=== PATIENT | female | born 2000 | race Caucasian/White ===

== ENCOUNTER 2021-10-31 13:39 | Inpatient (IN) | payer OTHER ==
[~2021-10-31] VITALS: Ht 157.5 cm; Wt 61.2 kg
[2021-10-31] MEDS ORDERED: PREN-183 PO (13:49)
[2021-10-31] MEDS ORDERED: ACET-2708 PO (13:50)
[2021-10-31] MEDS ORDERED: SODIUM CHLORIDE 0.9% 1,000 ML IV ONE (14:15)
[2021-10-31] MEDS ORDERED: IBUPROFEN 600MG TABLET PO STA (14:15)
[2021-10-31] MEDS ORDERED: ALBUTEROL 6.7GM HFA INHALER ORI ONE (14:45)
[2021-10-31 15:01] LABS: HEMATOCRIT. 35.6 % (36.0-48.0); HEMOGLOBIN. 11.8 g/dL (12.0-16.0); MEAN CORPUSCULAR HEMOGLOBIN 29.1 pg (28.0-32.0); MEAN CORPUSCULAR VOLUME 87.4 fL (81.0-99.0); MEAN PLATELET VOLUME 9.5 fl (7.4-10.4); PLATELET 222 x1000/uL (130-400); RED BLOOD CELL COUNT 4.07 mill/uL (4.2-5.4); RED CELL DISTRIBUTION WIDTH 13.7 % (11.6-14.6)
[2021-10-31 15:11] LABS: D-DIMER 1.23 mg/L FEU (<0.50)
[2021-10-31 15:19] LABS: CHLORIDE 105 mEq/L (98-107)
[2021-10-31 15:41] LABS: B-HCG QUANTITATIVE 14626 mIU/mL (<3)
[2021-10-31] MEDS: AZTREONAM 2 GM in DEXT 5% WATER 100 ML IV SCH (16:00)
[2021-10-31 16:49] LABS: CLARITY URINE CLEAR (CLEAR); COLOR URINE YELLOW (YELLOW); KETONES URINE TRACE (NEGATIVE); LEUKOCYTE ESTERASE URINE TRACE (NEGATIVE); NITRITE URINE NEGATIVE (NEGATIVE); OCCULT BLOOD URINE NEGATIVE (NEGATIVE); PROTEIN URINE NEGATIVE (NEGATIVE); SPECIFIC GRAVITY URINE 1.021 (1.005-1.030)
[2021-10-31 16:59] LABS: PLATELET ESTIMATE NORMAL
[2021-10-31] MEDS ORDERED: SODIUM CHLORIDE 0.45% 1,000 ML IV SCH (22:30)
[2021-10-31] MEDS ORDERED: NA PHOS,M-B/NA PHOS,DI-BA ENEMA 118ML PR PRN (22:30)
[2021-10-31] MEDS ORDERED: MAGNESIUM/ALUMINUM HYDROXIDE/SIMETHICONE 30ML UDC PO PRN (22:30)
[2021-10-31] MEDS ORDERED: ACETAMINOPHEN 325MG TABLET PO PRN (22:30)
[2021-10-31] MEDS ORDERED: IOHEXOL-350 100 ML BOTTLE ONE (23:13)
[2021-11-01] VITALS (7 sets, daily range): BP systolic 105–113; BP diastolic 53–80
[2021-11-01 00:46] LABS: CHLORIDE 106 mEq/L (98-107)
[2021-11-01] MEDS: AZTREONAM 2 GM in DEXT 5% WATER 100 ML IV SCH (04:00)
[2021-11-01 12:45] LABS: CHLORIDE 106 mEq/L (98-107)
[2021-11-01] MEDS ORDERED: AZTREONAM 2 GM in DEXT 5% WATER 100 ML IV SCH (18:00)
== END 2021-11-01 20:44 | disposition home or self-care (01) | DRG 566 ==
LOC: ER 13:39 → MICUSO 22:39 → EDBEDREQTM 22:44 → EDBEDREQ 22:44 → EDBEDREQSVC 22:44 → 7EST 11-01 02:56
PROVIDERS: ADMIT Internal Medicine; ATTEND Internal Medicine
DX: O98.512 Other viral diseases complicating pregnancy, second trimester (principal); U07.1 COVID-19; O44.42 Low lying placenta NOS or without hemorrhage, second trimester; E86.0 Dehydration; O99.612 Diseases of the digestive system complicating pregnancy, second trimester; O99.512 Diseases of the respiratory system complicating pregnancy, second trimester; K21.9 Gastro-esophageal reflux disease without esophagitis; J45.909 Unspecified asthma, uncomplicated; Z87.891 Personal history of nicotine dependence; Z3A.19 19 weeks gestation of pregnancy; Z88.1 Allergy status to other antibiotic agents; Z88.8 Allergy status to other drugs, medicaments and biological substances; Z90.49 Acquired absence of other specified parts of digestive tract
CPT/HCPCS: 36415; 71045; 71275; 76805; 80048; 80053; 81003; 83605; 83880; 84145; 84484; 84702; 85025; 85379; 86850; 86900; 87426; 93005; 94640; 99291; C9803; J3490; J7030; J7060; Q9967

== ENCOUNTER 2022-01-04 21:28 | Observation (INO) | payer OTHER ==
[~2022-01-04] VITALS: Ht 162.6 cm; Wt 94.3 kg
[~2022-01-04 21:28] MED LIST: ACET-2708 PO; PREN-183 PO
[2022-01-04] MEDS ORDERED: ONDANSETRON HCL 4MG/2ML INJ IV ONE (23:00)
[2022-01-04] MEDS ORDERED: ACETAMINOPHEN 325MG TABLET PO PRN (23:00)
[2022-01-04] MEDS ORDERED: LACTATED RINGERS 1,000 ML IV NR (23:00)
[2022-01-04] MEDS ORDERED: LACTATED RINGERS 1,000 ML IV SCH (23:00)
[2022-01-04] MEDS ORDERED: LABETALOL HCL 100MG TABLET PO ONE (23:30)
[2022-01-04 23:43] LABS: CLARITY URINE CLEAR (CLEAR); COLOR URINE YELLOW (YELLOW); KETONES URINE NEGATIVE (NEGATIVE); LEUKOCYTE ESTERASE URINE NEGATIVE (NEGATIVE); NITRITE URINE NEGATIVE (NEGATIVE); OCCULT BLOOD URINE NEGATIVE (NEGATIVE); PROTEIN URINE NEGATIVE (NEGATIVE); SPECIFIC GRAVITY URINE 1.018 (1.005-1.030); UROBILINOGEN URINE 0.2 E.U./dL (0.2-1.0)
[2022-01-05] MEDS ORDERED: LABETALOL HCL 100MG TABLET PO SCH (09:00)
== END 2022-01-05 00:35 | disposition home or self-care (01) ==
LOC: 8 EST LDRP 21:28
PROVIDERS: ADMIT Obstetrics & Gynecology; ATTEND Obstetrics & Gynecology
DX: O26.893 Other specified pregnancy related conditions, third trimester (principal); R10.2 Pelvic and perineal pain; R10.31 Right lower quadrant pain; Z3A.29 29 weeks gestation of pregnancy
CPT/HCPCS: 59025; 76805; 81003; 96360; G0378

== ENCOUNTER 2022-03-19 02:32 | Inpatient (IN) | payer OTHER ==
[~2022-03-19] VITALS: Ht 162.6 cm; Wt 94.8 kg
[2022-03-19] MEDS ORDERED: PNV1TABL61 PO (03:45)
[2022-03-19] MEDS ORDERED: RHO(D) IMMUNE GLOBULIN 300 MCG/SYR IM ONE (13:00)
[2022-03-19] MEDS ORDERED: OXYTOCIN 30 UNITS/500ML NS PMX 500 ML IV SCH (13:00)
[2022-03-19] MEDS ORDERED: LIDOCAINE HCL 1% 20ML VIAL (Pyxis) INJ INFIL SCH (13:00)
[2022-03-19] MEDS: LACTATED RINGERS 1,000 ML IV SCH ×3 (14:36→21:29)
[2022-03-19] MEDS ORDERED: ROPIVACAINE HCL/PF EPIDURAL 200 ML EPI SCH (15:15)
[2022-03-19 19:36] LABS: BASOPHILS % 0.3 % (0.0-2.0); HEMATOCRIT. 40.8 % (36.0-48.0); HEMOGLOBIN. 13.4 g/dL (12.0-16.0); MEAN CORPUSCULAR HEMOGLOBIN 27.7 pg (28.0-32.0); MEAN CORPUSCULAR VOLUME 84.4 fL (81.0-99.0); MEAN PLATELET VOLUME 10.5 fl (7.4-10.4); MONOCYTES % 6.3 % (2.0-8.0); NEUTROPHILS % 73.4 % (40.0-76.0); PLATELET 215 x1000/uL (130-400); RED BLOOD CELL COUNT 4.83 mill/uL (4.2-5.4); RED CELL DISTRIBUTION WIDTH 15.2 % (11.6-14.6)
[2022-03-19] MEDS ORDERED: PENICILLIN G POTASSIUM 5 MMU in DEXT 5% WATER 100 ML IV NR (19:45)
[2022-03-19 20:11] LABS: HEPATITIS B SURFACE ANTIGEN NEGATIVE
[2022-03-19 21:11] LABS: PARTIAL THROMBOPLASTIN TIME 28.5 sec (23.4-31.0); PROTHROMBIN TIME 10.8 sec (9.6-11.0)
[2022-03-20] MEDS ORDERED: LANOLIN OINT 7GM TUBE TOP PRN
[2022-03-20] MEDS ORDERED: IBUPROFEN 400MG TABLET PO PRN
[2022-03-20] MEDS ORDERED: ACETAMINOPHEN WITH CODEINE 300/30MG TABLET PO PRN
[2022-03-20] MEDS ORDERED: BENZOCAINE/LANOLIN/ALOE VERA SPRAY TOP PRN
[2022-03-20] MEDS ORDERED: DIPHENHYDRAMINE 25MG CAPSULE PO PRN
[2022-03-20] MEDS ORDERED: RHO(D) IMMUNE GLOBULIN 300 MCG/SYR IM PRN
[2022-03-20] MEDS ORDERED: PENICILLIN G POTASSIUM 2.5 MMU in DEXTROSE 5% WATER 50 ML IV SCH ×2
[2022-03-20] MEDS ORDERED: OXYTOCIN 30 UNITS/500ML NS PMX 500 ML IV SCH
[2022-03-20] MEDS ORDERED: BISACODYL 10MG SUPP PR PRN
[2022-03-20] MEDS ORDERED: HEMORRHOIDAL SUPP PR PRN
[2022-03-20] MEDS ORDERED: GLYCERIN/WITCH HAZEL LEAF MEDICATED PAD TOP PRN
[2022-03-20 00:54] LABS: CLARITY URINE CLEAR (CLEAR); COLOR URINE YELLOW (YELLOW); KETONES URINE TRACE (NEGATIVE); LEUKOCYTE ESTERASE URINE 2+ (NEGATIVE); NITRITE URINE NEGATIVE (NEGATIVE); OCCULT BLOOD URINE 2+ (NEGATIVE); PROTEIN URINE NEGATIVE (NEGATIVE); SPECIFIC GRAVITY URINE 1.015 (1.005-1.030); UROBILINOGEN URINE 0.2 E.U./dL (0.2-1.0)
[2022-03-20 01:21] LABS: *AMPHETAMINES SCREEN URINE NEGATIVE (NEGATIVE); *BARBITURATES SCREEN URINE NEGATIVE (NEGATIVE); *BENZODIAZEPINES SCREEN URINE NEGATIVE (NEGATIVE); *COCAINE SCREEN URINE NEGATIVE (NEGATIVE); CANNABINOID URINE SCREEN NEGATIVE (NEGATIVE); METHADONE URINE SCREEN NEGATIVE (NEGATIVE); OPIATES URINE SCREEN NEGATIVE (NEGATIVE); PHENCYCLIDINE URINE SCREEN NEGATIVE (NEGATIVE)
[2022-03-20 02:15] VITALS: BP 113/72
[2022-03-20] MEDS: IBUPROFEN 800MG TABLET PO PRN ×3 (02:40→23:10)
[2022-03-20 04:30] VITALS: BP 113/65
[2022-03-20] MEDS ORDERED: TETANUS, DIPHTHERIA, PERTUSSIS VAC/PF 0.5ML (>10YR OLD) IM ONE (06:45)
[2022-03-20] MEDS ORDERED: INFLUENZA VACCINE 05/PF 0.5 ML SYRINGE IM ONE (06:45)
[2022-03-20] MEDS ORDERED: NALOXONE HCL 0.4MG/ML VIAL IV PRN (07:30)
[2022-03-20 08:00] VITALS: BP 111/73
[2022-03-20] MEDS: SIMETHICONE 80MG TABLET CHEW PO SCH ×3 (08:00→23:10)
[2022-03-20] MEDS ORDERED: PRENATAL VIT/FE FUMARATE/FA TABLET PO SCH (09:00)
[2022-03-20 16:00] VITALS: BP 101/70
[2022-03-20 20:00] VITALS: BP 114/77
[2022-03-20] MEDS ORDERED: DOCUSATE SODIUM 100MG CAPSULE PO SCH (21:00)
[2022-03-21 04:00] VITALS: BP 101/59
[2022-03-21] MEDS: IBUPROFEN 800MG TABLET PO PRN (04:59)
[2022-03-21] MEDS ORDERED: FERROUS SULFATE 325MG TABLET PO SCH (07:30)
[2022-03-21 07:37] LABS: BASOPHILS % 0.4 % (0.0-2.0); HEMOGLOBIN. 10.7 g/dL (12.0-16.0); LYMPHOCYTES % 28.5 % (20.0-50.0); MEAN CORPUSCULAR HEMOGLOBIN 28.1 pg (28.0-32.0); MEAN CORPUSCULAR VOLUME 83.9 fL (81.0-99.0); MONOCYTES % 8.7 % (2.0-8.0); NEUTROPHILS % 60.4 % (40.0-76.0); PLATELET 161 x1000/uL (130-400); RED BLOOD CELL COUNT 3.81 mill/uL (4.2-5.4); RED CELL DISTRIBUTION WIDTH 15.3 % (11.6-14.6)
[2022-03-21 08:00] VITALS: BP 105/66
[2022-03-21] MEDS: SIMETHICONE 80MG TABLET CHEW PO SCH (09:07)
== END 2022-03-21 12:30 | disposition home or self-care (01) | DRG 560 ==
LOC: OBSVTOIN 02:32 → 8 EST LDRP 02:32 → 8EST 03-20 07:25
PROVIDERS: ADMIT Obstetrics & Gynecology; ATTEND Obstetrics & Gynecology
PROC: 10E0XZZ Delivery of Products of Conception, External Approach (ICD-10-PCS; principal; 2022-03-20)
PROC: 3E0R3BZ Introduction of Anesthetic Agent into Spinal Canal, Percutaneous Approach (ICD-10-PCS; 2022-03-20)
PROC: 00HU33Z Insertion of Infusion Device into Spinal Canal, Percutaneous Approach (ICD-10-PCS; 2022-03-20)
DX: O80 Encounter for full-term uncomplicated delivery (principal); Z37.0 Single live birth; Z20.822 Contact with and (suspected) exposure to COVID-19; Z3A.39 39 weeks gestation of pregnancy; Z88.1 Allergy status to other antibiotic agents; Z88.8 Allergy status to other drugs, medicaments and biological substances
CPT/HCPCS: 36415; 76805; 76818; 80305; 81003; 85025; 86592; 86703; 86762; 86850; 86900; 87340; 87426; 90686; 90715; 99281; J2540; J2795; J7060; J7120; A4315; J2590